=== PATIENT | female | born 1990 | race African-American/Black ===

== ENCOUNTER 2021-09-06 06:59 | Emergency (ER) | payer MEDICAID, SELFPAY ==
--- NOTE | ~2021-09-06 | XR_ITS ---
EXAMINATION: XR FOOT, LEFT CLINICAL INFORMATION: Swelling and pain COMPARISON: 10/06/2018 TECHNIQUE: AP, lateral, and oblique views of the left foot. FINDINGS: Slight soft tissue swelling along the dorsum of the foot. Degenerative changes of the first metatarsophalangeal joint as seen on the prior study without significant interval change. No acute fracture subluxation. No radiopaque foreign bodies. XR/XR foot LT 2V IMPRESSION: Soft tissue swelling along the dorsum of the foot. No acute osseous abnormality.
[2021-09-06 07:20] VITALS: BP 114/70; PULSE 77; RESP 16; TEMP 36.3; O2SAT 99; BMI 31.2
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
== END 2021-09-06 08:49 | disposition home or self-care (01) ==
LOC: HO.ED 08:43
PROVIDERS: Emergency Provider Emergency Medicine; PCP Physician Assistant
DX: S93.602A Unspecified sprain of left foot, initial encounter (principal); M79.672 Pain in left foot; M25.475 Effusion, left foot; W05.2XXA Fall from non-moving motorized mobility scooter, initial encounter; Y93.9 Activity, unspecified; Y92.9 Unspecified place or not applicable; Y99.9 Unspecified external cause status
CPT/HCPCS: 29515; 73620; 99283

== ENCOUNTER 2023-07-06 15:52 | Emergency (ER) | payer MEDICAID, SELFPAY ==
[2023-07-06 16:35] VITALS: BP 135/78; PULSE 95; RESP 16; TEMP 38.2; O2SAT 100; BMI 30.8
--- NOTE | 2023-07-06 16:36 | ED_ITS ---
HPI - General Adult General Chief complaint: Upper Respiratory Symptoms Stated complaint: nausea, fever t-1, sore throat , dehydrated Time Seen by Provider: 07/06/23 18:38 Source: patient Mode of arrival: ambulatory Limitations: no limitations History of Present Illness HPI narrative: Patient is a 32-year-old female presenting to the ED with complaint of sore throat, fever yesterday to 101, fatigue, palpitations, nausea. Denies vomiting/diarrhea. Mild cough. Denies chest pain or abdominal pain. MD complaint: fever, sore throat Onset (ago): day(s) Associated symptoms: cough and fever/chills Treatments prior to arrival: none Related Data Previous Rx's Medication Instructions Recorded ondansetron 4 mg disintegrating 4 mg PO Q8H PRN nausea and 07/06/23 tablet vomiting #10 tabs Allergies Allergy/AdvReac Type Severity Reaction Status Date / Time No Known Allergies Allergy Unverified 01/06/20 18:04 Review of Systems Review of Systems: As per HPI. Yes all other systems are reviewed and are negative Constitutional: Constitutional: Reports as per HPI [facility] Past Medical History Medical History (Updated 07/06/23 @ 18:56 by Masrha Prasad NP) No pertinent past medical history Social History Social History (Updated 09/06/21 @ 08:40 by Kelly Kelly DO) Patient Tobacco Use Status: Never used Tobacco Advance Directives: No Advance Directives Information Provided: No Physical Exam ED Vital Signs: Vital Signs - 24 hr 07/06/23 16:35 Temperature 100.8 F H Pulse Rate 95 Respiratory Rate 16 Blood Pressure 135/78 Pulse Oximetry 100 Oxygen Delivery Method Room Air BMI result Body Mass Index 30.8 Vital signs have been reviewed and appear to be correct. Blood pressure normal. Heart rate normal. Respiratory rate normal. Temperature normal. Oxygen saturation normal. Const General: cooperative, healthy appearing and no acute distress Orientation/consciousness: oriented to person, oriented to place, oriented to time and patient oriented x3 Limitations: no limitations HENMT Head: Yes normocephalic and Yes atraumatic Ears: external ears normal General nose exam: Normal external nose present Face and sinus: Yes face symmetric Mouth: oropharynx normal and moist mucous membranes Throat: Yes uvula midline Eyes Pupils: Equal, round and reactive pupils present Neck Neck: Yes normal visual inspection and Yes supple Resp Effort & Inspection: normal respiratory effort and able to speak in complete sentences Auscultation: clear to auscultation bilaterally Cardio Rate: regular rate Rhythm: regular rhythm Heart sounds: S1 normal heart sound present and S2 normal heart sound present GI Palpation (GI): Soft to palpation and nontender Auscultation: normoactive bowel sounds General: Yes no CVA tenderness Back/Spine/Pelvis Back: no CVA tenderness Skin General skin exam: elasticity normal and turgor normal Neuro General: oriented to person, oriented to place, oriented to time, patient oriented x3, moves all extremities, no focal motor deficits and CN's II-XI intact bilaterally Cranial nerves: Yes Equal, round and reactive pupils present Cognition (Neuro): normal cognition Extrem General: Yes full ROM, Yes no pedal edema and Yes no calf tenderness Psych Mental Status: mental status grossly normal Affect: normal affect Thought process: Normal thought process present Course Course Course Narrative: This is a rapid medical exam: Additional HPI, ROS, PE not included below will be deferred to primary provider. Patient is a 32-year-old female presenting to the ED with complaint of sore throat, fever yesterday to 101, fatigue, palpitations, nausea. Denies vomiting/diarrhea. Mild cough. Temp 100.8 in triage, tylenol ordered. Plan: viral and strep swabs, upreg, UA Medications Administered Discontinued Medications Generic Name Dose Route Start Last Admin Trade Name Gaudencioq PRN Reason Stop Dose Admin Acetaminophen 650 mg 07/06/23 16:40 07/06/23 16:45 Acetaminophen 325 Mg Tablet PO 07/06/23 16:41 650 mg ONCE ONE Administration Sodium Chloride 1,000 mls @ 999 mls/hr 07/06/23 18:45 07/06/23 19:20 Ns IV 07/06/23 19:45 999 mls/hr .Q1H1M GAIL Administration Ondansetron HCl 4 mg 07/06/23 18:43 07/06/23 19:19 Ondansetron Hcl 4 Mg/2 Ml Vial IVPUSH 07/06/23 18:44 4 mg ONCE ONE Administration Medical Decision Making Medical Decision Making [facility] Narrative: Patient is a 32-year-old female presenting to the ED with complaint of sore throat, fever yesterday to 101, fatigue, palpitations, nausea. On exam patient is awake, A+Ox3, VS WNL, slightly febrile, given Tylenol in triage, normal neurological exam without focal deficits, physical exam findings as above. Given reported symptoms and physical exam findings, initial differential includes viral illness, covid, flu, rsv, strep pharyngitis. Swab positive for influenza A. Patient updated on results. Patient specifically requesting IV fluids, states she feels dehydrated, will order 1L NS. Discussed treatment with Tamiflu as patient is within treatment window but patient declined. Will prescribe zofran for nausea. Instructed patient to follow up with PCP. Return precautions discussed at bedside. Patient verbalized understanding of and agreement with plan. Differential Diagnosis Differential Diagnoses: The differential diagnosis associated with the presentation includes As per [facility] Admission/Observation Consideration of admission/observation: Escalation of care including admission/observation considered Patient would have been admitted to the hospital had their work up had any findings where hospital admission was appropriate and their clinical presentation warranted hospital admission. Lab Data [facility] Lab Attestation statement: I reviewed the patient's lab results. As per [facility] Labs: Lab Results 07/06/23 07/06/23 Range/Units 16:56 19:47 Urine Color Yellow Urine Appearance Clear Urine pH 6.0 (5.0-9.0) Ur Specific Honeydew 1.010 (1.005-1.025) Urine Protein Negative (Neg-Trace) mg/dL Urine Glucose (UA) Negative (Negative) mg/dL Urine Ketones Negative (Negative) mg/dL Urine Blood Negative (Negative) Urine Nitrite Negative (Negative) Ur Leukocyte Esterase Negative (Negative) Urine Test NEGATIVE (NEGATIVE) Influenza Type A (PCR) POSITIVE A (Negative) Influenza Type B (PCR) NEGATIVE (Negative) RSV RNA Qual (PCR) NEGATIVE (Negative) SARS-CoV-2 RNA (RT-PCR) NEGATIVE (Negative) S. pyogenes GrpA CONRAD Negative (Negative) External Record Review External record reviewed: Inpatient record, Office record and Outpatient record Prescription Management I considered prescription management with: Antiviral and Other Discharge Plan Discharge Clinical Impression: Influenza Patient Disposition: Home, Self-Care Instructions: Influenza (DC), Flu Shot (Vaccine) for Adults (ED) Additional Instructions: You were evaluated in the emergency department today for sore throat, congestion and fever. Your flu test was positive. You should isolate at home for another 4 days and continue to wear mask or symptomatic after that. You were offered treatment with Tamiflu which you declined. You are being prescribed zofran which you can take every 8 hours as needed for nausea. Your symptoms should resolve over time with rest and fluids. You can take 650 mg Tylenol or 600 mg ibuprofen every 6 hours as needed for fever or pain. Please follow-up with your primary care provider for any ongoing symptoms. Return to the emergency department if you develop worsening pain, fever not controlled with Tylenol and ibuprofen, chest pain, dizziness or lightheadedness, or any other concerning symptoms. Prescriptions: New ondansetron 4 mg tablet,disintegrating 4 mg PO Q8H PRN (Reason: nausea and vomiting) Qty: 10 0RF
--- NOTE | 2023-07-06 16:37 | ECG_ITS ---
Test Reason : PALPATATIONS Blood Pressure : / mmHG Vent. Rate : 084 BPM Atrial Rate : 084 BPM P-R Int : 118 ms QRS Dur : 082 ms QT Int : 338 ms P-R-T Axes : 070 059 -10 degrees QTc Int : 399 ms Normal sinus rhythm Nonspecific ST and T wave abnormality Abnormal ECG No previous ECGs available Referred By: Marsha Prasad Electronically Signed By:ELAINE YATES
[2023-07-06] MEDS: Acetaminophen 325 MG TABLET 650 MG PO (16:45)
[2023-07-06 17:09] LABS: IDNOW Serial# 6674DD1D; Strep A Nucleic Acid Negative (Negative)
[2023-07-06 17:39] LABS: Influenza A PCR POSITIVE (Negative); Influenza B PCR NEGATIVE (Negative); Resp Syncy Virus RNA Qual PCR NEGATIVE (Negative); SARS COV2 PCR INHOUSE NEGATIVE (Negative)
[2023-07-06] MEDS: ondansetron HCL 4 MG/2 ML VIAL IVPUSH (19:19)
[2023-07-06] MEDS: 0.9 % Sodium Chloride 1,000 ML 999 ML IV (19:20)
[2023-07-06 19:55] LABS: Appearance Urine Clear; Color Urine Yellow; Glucose Urine UA Negative (Negative); Leukocyte Esterase Urine Negative (Negative); Nitrite Urine Negative (Negative); Urine Blood Negative (Negative); Urine Ketones Negative (Negative); Urine Protein Negative (Neg-Trace)
[2023-07-06 19:58] LABS: UPreg QC Valid YES; Urine Pregnancy NEGATIVE (NEGATIVE)
[2023-07-06] MEDS: Ketorolac Tromethamine 15 MG/ML VIAL IVPUSH (20:05)
[2023-07-06 20:13] VITALS: BP 130/60; PULSE 90; RESP 18; TEMP 36.7; O2SAT 100
== END 2023-07-06 20:22 | disposition home or self-care (01) ==
PROVIDERS: Registered Nurse Emergency; Emergency Provider Internal Medicine
DX: J11.1 Influenza due to unidentified influenza virus with other respiratory manifestations (principal); Z11.52 Encounter for screening for COVID-19; Z20.828 Contact with and (suspected) exposure to other viral communicable diseases
CPT/HCPCS: 0241U; 81003; 81025; 87651; 93005; 96374; 96375; 99284; J1885; J2405

== ENCOUNTER → 2023-07-06 16:37 | Outpatient (BNV) | payer MEDICAID, SELFPAY | PROVIDERS: Emergency Provider Internal Medicine; Visit Provider Internal Medicine | DX: R00.2 Palpitations (principal) | CPT/HCPCS: 93010 ==